=== PATIENT | male | born 1970 | race Caucasian/White ===

== ENCOUNTER 2017-09-23 07:28 | Outpatient (CLI) | payer OTHER ==
--- NOTE | 2017-09-23 13:23 | Ultrasound Report ---
COMPLETE ABDOMINAL ULTRASOUND: 09/23/2017 CLINICAL INDICATION: Distention pain. TECHNIQUE: Real-time scanning was performed with medical collections representative static images obtained. FINDINGS: The liver measures 15.7 cm. There is an echogenic 8 x 8 x 4 mm nodule in the medial right lobe, likely representing a tiny hemangioma. No intrahepatic biliary dilatation is present. The common bile duct measures 5 mm. The gallbladder is normal, as is the visualized pancreas. The kidneys are unremarkable, with the right measuring 13.7 cm and the left measuring 11.5 cm. The spleen measures 10.2 cm, and demonstrates normal echotexture. The abdominal aorta is normal in caliber throughout. The inferior vena cava is unremarkable. No free fluid is present. IMPRESSION: NO EVIDENT ETIOLOGY FOR PAIN AND DISTENTION. 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 TD: 09/23/2017 12:46
== END 2017-09-23 07:29 | disposition home or self-care (01) ==
LOC: DI 07:28
PROVIDERS: ATTEND Family Medicine
DX: R14.0 Abdominal distension (gaseous) (principal); R10.9 Unspecified abdominal pain
CPT/HCPCS: 76700

== ENCOUNTER 2021-01-03 20:11 | Emergency (ER) | payer OTHER ==
[2021-01-03 20:22] VITALS: BP 160/90
[2021-01-03] MEDS ORDERED: FAMOTIDINE 20 MG TABLET PO STA (22:18)
--- NOTE | 2021-01-03 22:21 | ED Physician Documentation ---
History of Present Illness - Stated complaint Stated Complaint: REACTION TO MEDS - Chief complaint Chief Complaint: Allergic Rx - Additonal information Additional information: 50-year-old male presents emergency department for evaluation of a drug reaction. He has been dealing with chronic prostate issues for at least 4 months. He finally saw a urologist yesterday and was prescribed Cipro for suspected prostatitis. He took his first dose this evening and about 15 minutes after taking it developed intense pruritus in his skin throat and ears. He then began to develop hives. At no point did he have tongue or lip swelling or difficulty swallowing speaking. He took 50 mg of Benadryl at home which fully resolve the symptoms but the nurse advice line requested he come to the ER. [place] a similar reaction to Cipro [place] Review of Systems Constitutional: denies: Fever, Chills Eyes: reports: Reviewed and negative Ears: reports: Reviewed and negative Nose: reports: Reviewed and negative Throat: reports: Reviewed and negative Cardiac: reports: Reviewed and negative Respiratory: reports: Reviewed and negative GI: reports: Reviewed and negative Skin: reports: Rash PD PAST MEDICAL HISTORY - Past Medical History Past Medical History: Yes - Past Surgical History Past Surgical History: Yes Ortho: Other - Present Medications Home Medications: Ambulatory Orders Medication Instructions Recorded Confirmed Ciprofloxacin HCl [Cipro] 500 mg PO BID 01/03/21 01/03/21 - Allergies Allergies/Adverse Reactions: Allergies Allergy/AdvReac Type Severity Reaction Status Date / Time ciprofloxacin Allergy Itching Verified 01/03/21 20:18 - Social History Does the pt smoke?: No Smoking Status: Never smoker Does the pt drink ETOH?: Yes Does the pt have substance abuse?: No - Immunizations Immunizations are current?: Yes - POLST Patient has POLST: No PD ED PE NORMAL - General General: Alert and oriented X 3, No acute distress - HEENT HEENT: PERRL - Neck Neck: Supple, no meningeal sign - Cardiac Cardiac: RRR, No murmur - Respiratory Respiratory: Clear bilaterally - Abdomen Abdomen: Normal bowel sounds, Soft, Non tender, Non distended - Back Back: No CVA TTP - Derm Derm: Warm and dry - Extremities Extremities: No deformity - Neuro Neuro: Alert and oriented X 3 Eye Opening: Spontaneous Motor: Obeys Commands Verbal: Oriented GCS Score: 15 Results - Vitals Vitals: Vital Signs - 24 hr 01/03/21 20:18 Temperature 36.5 C Heart Rate 60 Respiratory 16 Rate Blood Pressure 160/90 H O2 Saturation 99 Oxygen O2 Source Room air PD MEDICAL DECISION MAKING - ED course Complexity details: reviewed results, d/w patient ED course: At this [id number] male presents the emergency department for evaluation after developing hives and intense pruritus after taking Cipro at home. The reaction began about 15 minutes after taking the medication. It has fully resolved with 50 mg of Benadryl that he also took at home. He does not appear to have any allergic sequelae. I did offer Decadron but he would like to avoid steroids. Therefore I have given him 40 mg of Pepcid and advised that he continue to take the Benadryl for the next 24 hours. Patient is advised to closely follow-up with his urologist to determine longer-term prostate treatment. He also thinks he may have a sulfa allergy therefore will not prescribe any new antibiotics at this time Departure - Departure Disposition: 01 Home, Self Care Clinical Impression: Allergic reaction caused by a drug Qualifiers: Encounter type: initial encounter Qualified Code(s): T78.40XA - Allergy, unspecified, initial encounter Condition: Stable Record reviewed to determine appropriate education?: Yes Comments: You had an allergic reaction to Cipro. I would not take that medication or any class of drug called a tania quinolone in the future. You took Benadryl at home which seem to fully resolve your symptoms. You were given a one-time dose of Pepcid here in the emergency department which is a different form of a histamine luis f and can help prevent the hives from returning. I do recommend that you take 25 mg of Benadryl in the morning as well as 25 mg tomorrow evening. If at any point you have a return of the hives, tongue or lip swelling difficulty breathing then please return immediately to the ER Please discuss with your urologist how to further manage your prostatitis moving forward.
== END 2021-01-03 22:28 | disposition home or self-care (01) ==
LOC: ED 20:11
DX: T78.40XA Allergy, unspecified, initial encounter (principal)
CPT/HCPCS: 99282; 99284; A9270